=== PATIENT | female | born 1980 | race Caucasian/White ===

== ENCOUNTER 2017-10-24 20:45 | Observation (INO) | payer OTHER ==
[2017-10-24 21:35] LABS: ABSOLUTE BASOPHILS # (AUTO) 0.1 10^3/uL (0.0-0.2); ABSOLUTE LYMPHOCYTES (AUTO) 2.7 10^3/uL (0.5-4.7); ABSOLUTE MONOCYTES (AUTO) 0.4 10^3/uL (0.1-1.4); ABSOLUTE NEUT (AUTO) 6.4 10^3/uL (1.7-8.2); BASOPHILS % (AUTO) 0.7 % (0-2); EOSINOPHILS % (AUTO) 0.5 % (0-6); HEMATOCRIT 41.5 % (36.0-47.0); HEMOGLOBIN 14.4 g/dL (12.0-15.5); LYMPHOCYTES % (AUTO) 28.2 % (13-45); MEAN CORPUSCULAR HGB CONC 34.6 g/dL (32.0-36.0); MEAN CORPUSCULAR VOLUME 96 fl (80-97); MONOCYTES % (AUTO) 4.3 % (3-13); PLATELET COUNT 387 10^3/uL (150-450); RED BLOOD COUNT 4.35 10^6/uL (3.72-5.28); RED CELL DISTRIBUTION WIDTH 13.3 % (11.5-14.0); SEGMENTED NEUTROPHILS % (AUTO) 66.3 % (42-78); TOTAL CELLS COUNTED % (AUTO) 100 %; WHITE BLOOD COUNT 9.6 10^3/uL (4.0-10.5)
[2017-10-24 21:43] LABS: ALANINE AMINOTRANSFERASE 52 U/L (9-52); ALBUMIN 5.2 g/dL (3.5-5.0); ALKALINE PHOSPHATASE 75 U/L (38-126); ASPARTATE AMINO TRANSFERASE 46 U/L (14-36); BILIRUBIN,DIRECT 0.4 mg/dL (0.0-0.4); BILIRUBIN,TOTAL 0.8 mg/dL (0.2-1.3); BLOOD UREA NITROGEN 15 mg/dL (7-20); CALCIUM 9.4 mg/dL (8.4-10.2); GLUCOSE 69 mg/dL (75-110); POTASSIUM 4.3 mmol/L (3.6-5.0); TOTAL PROTEIN 8.8 g/dL (6.3-8.2)
[2017-10-24 21:47] LABS: ACETAMINOPHEN < 10 ug/mL (10-30); CARBON DIOXIDE 14 mmol/L (22-30); CHLORIDE 108 mmol/L (98-107); SALICYLATE < 1.0 mg/dL (2.0-20.0); SODIUM 145.2 mmol/L (137-145)
[2017-10-24 21:48] LABS: ANION GAP 23 (5-19)
[2017-10-24 21:53] LABS: ALCOHOL 318 mg/dL (NONE DETECTED)
--- NOTE | 2017-10-24 22:07 | ER Document Report ---
ED General - General Mode of Arrival: Ambulatory Information source: Patient, Law Enforcement TRAVEL OUTSIDE OF THE [place] IN LAST 30 DAYS: No <VIJAY DONNELLY - Last Filed: 10/24/17 22:14> <VINAY PETERSEN - Last Filed: 10/25/17 00:52> <WAYNE LERNER - Last Filed: 10/25/17 10:05> <GEORGIE HERRERA - Last Filed: 10/25/17 12:33> - General Chief Complaint: Psych Problem Stated Complaint: IVC WITH PAPERS Time Seen by Provider: 10/24/17 21:22 Notes: Patient is a 37 year old female with asthma brought into the emergency department via [employer] on IVC papers. Patient states she is here because of her . According to IVC brought in by law enforcement, patient's states she has been sleeping all day and is not capable to take care of her kids. Patient denies this statement stating her was not home today, and when he did come home she was up with her son. Patient denies drinking alcohol tonight, suicidal ideation or homicidal ideation. Patient currently takes Genny, Advair and Albuterol. Patient states she normally does not have to take albuterol when taking Advair but states her brought one of her cats into her home so she feels her breathing has been tighter lately. (VIJAY DONNELLY) Patient comes in with IVC paperwork, EtOH level is 318 document, denies drinking at all today. Spouse called and provided history to the nurse. Patient has long history of alcohol abuse. Today is day 6 of an alcohol binge. Unable to care for her children. Passes out at home while she is watching the children. Multiple suicide attempts in the past. (VINAY PETERSEN) - Related Data Allergies/Adverse Reactions: No Known Allergies Allergy (Unverified 10/24/17 21:26) Past Medical History - General Information source: Patient - Social History Smoking Status: Never Smoker Chew tobacco use (# tins/day): No Frequency of alcohol use: Heavy Drug Abuse: None Occupation: Stay at home mom Patient has suicidal ideation: No Patient has homicidal ideation: No - Past Medical History Cardiac Medical History: Reports: Hx Hypertension Pulmonary Medical History: Reports: Hx Asthma Past Surgical History: Reports: Hx Section - x2 <VIJAY DONNELLY - Last Filed: 10/24/17 22:14> - Social History Family History: None <GEORGIE HERRERA - Last Filed: 10/25/17 12:33> Review of Systems - Review of Systems Constitutional: No symptoms reported EENT: No symptoms reported Cardiovascular: No symptoms reported Respiratory: No symptoms reported Gastrointestinal: No symptoms reported Genitourinary: No symptoms reported Female Genitourinary: No symptoms reported Musculoskeletal: No symptoms reported Skin: No symptoms reported Hematologic/Lymphatic: No symptoms reported Neurological/Psychological: No symptoms reported -: Yes All other systems reviewed and negative <ANDRZEJSHAWNEEVARGHESE - Last Filed: 10/24/17 22:14> Physical Exam <VIJAY DONNELLY - Last Filed: 10/24/17 22:14> <VINAY PETERSEN - Last Filed: 10/25/17 00:52> <WAYNE LERNER - Last Filed: 10/25/17 10:05> <GEORGIE HERRERA - Last Filed: 10/25/17 12:33> - Vital signs Vitals: Temp Pulse Resp BP Pulse Ox 98.4 F 128 H 20 150/107 H 100 10/24/17 21:22 10/24/17 21:22 10/24/17 21:22 10/24/17 21:22 10/24/17 21:22 - Notes Notes: GENERAL: Alert, interacts well. No acute distress. Strong alcohol odor. HEAD: Normocephalic, atraumatic. EYES: Pupils equal, round, and reactive to light. Extraocular movements intact. ENT: Oral mucosa moist, tongue midline. NECK: Full range of motion. Supple. Trachea midline. LUNGS: Wheezing with cough. No rales or rhonchi. No respiratory distress. HEART: Regular rate and rhythm. No murmurs, gallops, or rubs. EXTREMITIES: Moves all 4 extremities spontaneously. NEUROLOGICAL: Alert and oriented x3. Normal speech. PSYCH: Normal affect, normal mood. SKIN: Warm, dry, normal turgor. No rashes or lesions noted. (VIJAY DONNELLY) Course - Laboratory Result Diagrams: 10/24/17 21:05 10/24/17 21:05 <VIJAY DONNELLY - Last Filed: 10/24/17 22:14> - Laboratory Result Diagrams: 10/24/17 21:05 10/24/17 21:05 - EKG Interpretation by Al EKG shows normal: Sinus rhythm, Terry, QRS Complexes, ST-T Waves. abnormal: Intervals - Borderline prolonged QT interval Rate: Normal - 98 Rhythm: NSR - Transfer of Care Care transferred to following provider: Dr. Kilgore <VINAY PETERSEN - Last Filed: 10/25/17 00:52> - Laboratory Result Diagrams: 10/24/17 21:05 10/24/17 21:05 <WAYNE LERNER - Last Filed: 10/25/17 10:05> - Laboratory Result Diagrams: 10/24/17 21:05 10/25/17 11:10 <GEORGIE HERRERA - Last Filed: 10/25/17 12:33> - Re-evaluation Re-evalutation: 10/25/17 00:52 Patient's agitated behavior calmed down after the Haldol and Benadryl. (VINAY PETERSEN) - Vital Signs Vital signs: Temp Pulse Resp BP Pulse Ox 98.9 F 102 H 16 147/98 H 100 10/25/17 10:45 10/25/17 10:45 10/25/17 10:45 10/25/17 10:45 10/25/17 10:45 - Laboratory Laboratory results interpreted by wy: 10/24/17 10/24/17 10/25/17 21:05 22:33 11:10 Sodium 145.2 H Chloride 108 H Carbon Dioxide 14 L 13 L Anion Gap 23 H 25 H Glucose 69 L 59 L Total Bilirubin 1.9 H Direct Bilirubin 0.5 H AST 46 H 53 H Total Protein 8.8 H 8.7 H Albumin 5.2 H 5.2 H Urine Protein 30 H Urine Ketones TRACE H Urine Blood MODERATE H Ur Leukocyte Esterase SMALL H Salicylates < 1.0 L Acetaminophen < 10 L Serum Alcohol 318 H* - Transfer of Care Notes: 10/25/17 00:53 Patient is pending evaluation by psychiatry in the morning. She is on IVC paperwork. She may need additional doses of Haldol and/or Benadryl for agitation. (VINAY PETERSEN) Discharge <VIJAY DONNELLY - Last Filed: 10/24/17 22:14> <VINAY PETERSEN - Last Filed: 10/25/17 00:52> <WAYNE LERNER - Last Filed: 10/25/17 10:05> - Discharge Admitting Provider: Siomara Fontanez Unit Admitted: IMCU <GEORGIE HERRERA - Last Filed: 10/25/17 12:33> - Discharge Clinical Impression: Chronic alcohol abuse, Alcoholic ketoacidosis Acute alcohol intoxication Qualifiers: Complication of substance-induced condition: uncomplicated Qualified Code(s): F10.929 - Alcohol use, unspecified with intoxication, unspecified Urinary tract infection Qualifiers: Urinary tract infection type: site unspecified Hematuria presence: without hematuria Qualified Code(s): N39.0 - Urinary tract infection, site not specified Condition: Fair Disposition: ADMITTED INPATIENT Additional Instructions: ACUTE ALCOHOL INTOXICATION and ALCOHOL ABUSE: Your evaluation revealed very high levels of alcohol. You can from drinking a large amount of alcohol rapidly! Further, there's the risk of falls , traffic accidents, and fights. A high portion (about 50 percent) of the serious injuries seen in hospital emergency rooms are caused by alcohol. Alcohol overdosage is usually due to an underlying emotional or psychiatric problem. You may benefit from counselling. If "binge" drinking is an ongoing problem for you, or if you drink ANY AMOUNT of alcohol EVERY day, you most likely have a tendency to alcoholism. You should avoid alcohol totally. We can refer you for treatment. Persons with alcohol problems are often also prone to other addictions -- you should discuss any use of medications or drugs with the doctor. You should be watched at home for the next several hours by someone who has not been drinking. Get extra fluids for the next 24 hours. Call the doctor if there is repeated vomiting, increasing headache, decreasing level of alertness, or any other worsening. CHRONIC ALCOHOLISM and ALCOHOL ABUSE: Your evaluation reveals evidence of chronic alcoholism, an addiction to alcohol. The tendency to alcoholism may be inherited. Chronic use of alcohol weakens muscles, causes fatty deposits in the liver , damages the stomach, makes you more prone to infections, and can cause defects in unborn children. In the long run, brain atrophy and cirrhosis of the liver result. You are also at greater risk for certain types of cancer, such as cancer of the mouth, throat, stomach, and liver. Counselling services are available to help you. In-hospital treatment programs often help. Support groups such as Alcoholics Anonymous can be very useful in beating this addiction. Your physician can make a referral for you. As alcoholics often are prone to other addictions, you should discuss your use of any other medications with the doctor. ALCOHOL WITHDRAWAL: Your symptoms are caused by alcohol withdrawal. After a period of frequent drinking, the brain and body are changed by the alcohol. When you quit or reduce your drinking, the nervous system becomes unstable. Withdrawal symptoms can start a few hours after your last drink, but sometimes don't begin until a couple of days later. Symptoms can include shakiness, sweating, insomnia, nausea , vomiting, fearfulness, hallucinations, and seizures. In addition to the acute effects of alcohol withdrawal, we often have to deal with the medical effects of alcoholism. These problems often include dehydration, stomach irritation, intestinal bleeding, low blood sugar, liver disease, and pancreas inflammation. Treatment for alcohol withdrawal includes mild sedatives, vitamins, and fluids. You need to be with someone who can help if symptoms become severe. Many patients can withdraw at home. Admission to the hospital or a detox facility may be necessary if withdrawal symptoms are severe and uncontrollable. Abstaining from alcohol is the only effective long-term treatment. If you start drinking again, you will not be able to control yourself after the first drink. Treatment programs are available. In addition, many alcoholics benefit from Alcoholics Anonymous or other support groups available through your counselor or christian materials tech. AL-ANON and ALA-TEEN are support groups for friends and family members of an alcoholic. Go to the emergency room if you develop persistent vomiting, severe abdominal pain, fever, shortness of breath, hallucinations, uncontrollable tremors, or seizures. FOLLOW-UP CARE: Please [place] for your continued services. You are encouraged to follow up with substance abuse treatment; you have been provided a detox list of area providers. If you experience worsening or a significant change in your symptoms , notify the physician immediately or return to the Emergency Department at any time for re-evaluation. Referrals: THOM LAMB DO [Primary Care Provider] - Follow up as needed Mitra Attestation: 10/24/17 22:56 I personally performed the services described in the documentation, reviewed and edited the documentation which was dictated to the scribe in my presence, and it accurately records my words and actions. (VINAY PETERSEN) Scribe Documentation - Scribe Written by Mitra:: Mitra Mccabe, 10/24/2017 22:09 acting as scribe for :: Jami <VIJAY DONNELLY - Last Filed: 10/24/17 22:14>
[2017-10-24 22:49] LABS: APPEARANCE,URINE CLEAR; BILIRUBIN,URINE NEGATIVE (NEGATIVE); COLOR,URINE YELLOW; GLUCOSE, URINE NEGATIVE (NEGATIVE); KETONES,URINE TRACE mg/dL (NEGATIVE); LEUKOCYTE ESTERASE,URINE SMALL (NEGATIVE); NITRITE,URINE NEGATIVE (NEGATIVE); PROTEIN,URINE 30 mg/dL (NEGATIVE); URINE SPECIFIC GRAVITY 1.005; UROBILINOGEN,URINE NEGATIVE mg/dL (<2.0)
[2017-10-24] MEDS ORDERED: HALOPERIDOL 5 MG TABLET PO ONE (22:53)
[2017-10-24] MEDS ORDERED: BENZTROPINE MESYLATE 1 MG TABLET PO ONE (22:54)
[2017-10-24] MEDS ORDERED: DIPHENHYDRAMINE HCL 25 MG CAPSULE PO ONE (22:54)
[2017-10-24] MEDS ORDERED: ALBUTEROL SULFATE HFA (90 MCG/PUFF) 8 GM MDI (1 MDI/ER DISP) IH ONE (22:54)
[2017-10-24 23:03] LABS: URINE AMPHETAMINES SCREEN NEGATIVE; URINE BARBITURATES SCREEN NEGATIVE; URINE BENZODIAZEPINES SCREEN NEGATIVE; URINE COCAINE SCREEN NEGATIVE; URINE MARIJUANA (THC) SCREEN NEGATIVE; URINE METHADONE SCREEN NEGATIVE; URINE PHENCYCLIDINE SCREEN NEGATIVE
--- NOTE | 2017-10-24 23:10 | EKG REPORT ---
SEVERITY:- BORDERLINE ECG - SINUS RHYTHM BORDERLINE PROLONGED QT INTERVAL : Confirmed by: Jamey Lal 24-Oct-2017 23:09:03
[2017-10-24] MEDS ORDERED: CEPHALEXIN 500 MG CAPSULE PO ONE (23:26)
--- NOTE | 2017-10-25 10:47 | ER Document Report ---
Doctor's Note Notes: 10/25/17 10:41 Talked with patient about why she is here in the ED. She reports that her brought her here because he thinks that she drinks too much. Pt admits that she drinks a "significant amount" of alcohol on the weekends and denies drinking alcohol during the weekdays. She reports that [place] and states that she is doing well under his counseling. Pt denies ever having tremors, seizures or hallucinations as withdrawals but admits that she has had sweats past. Pt is not okay with someone talking to her counselor before she can talk to him and wants to speak with her deputy county attorney. Pt denies every trying to herself or her children, 8 y.o twins and a 3 y.o, and she believes that her children are safe at home. Pt does not understand why she is being kept here and thinks that she is safe to go home. PE: LUNGS: Clear to auscultation bilaterally, no wheezes, rales, or rhonchi. No respiratory distress. HEART: Regular rate and rhythm. No murmurs, gallops, or rubs. (JERI ROMAN) 10/25/17 12:34 Labs reviewed, last needs laboratory studies are concerning for possible alcoholic ketoacidosis however she has been eating and drinking fluids all night long without difficulty so they were rechecked, this morning's labs show continuing low CO2 of 13 and increasing anion gap of 25, patient does have elevated total and direct bilirubin despite no abdominal pain and no vomiting, no tenderness on examination. Patient was cleared from a mental health standpoint, IVC is rescinded, discussed with internal medicine Dr. Stevens for admission for alcoholic ketoacidosis. Thiamine, D5 half-normal saline and multivitamins were started. Patient understands why she is being admitted. Also patient's urinary tract infection has been treated with Rocephin. (GEORGIE HERRERA)
[2017-10-25] MEDS: CEPHALEXIN 500 MG CAPSULE PO SCH ×2 (11:02→17:15)
[2017-10-25 11:48] LABS: POTASSIUM 4.6 mmol/L (3.6-5.0)
[2017-10-25 11:51] LABS: ALBUMIN 5.2 g/dL (3.5-5.0); ALKALINE PHOSPHATASE 77 U/L (38-126); ASPARTATE AMINO TRANSFERASE 53 U/L (14-36); BILIRUBIN,DIRECT 0.5 mg/dL (0.0-0.4); BILIRUBIN,TOTAL 1.9 mg/dL (0.2-1.3); BLOOD UREA NITROGEN 12 mg/dL (7-20); CALCIUM 9.4 mg/dL (8.4-10.2); CARBON DIOXIDE 13 mmol/L (22-30); GLUCOSE 59 mg/dL (75-110); TOTAL PROTEIN 8.7 g/dL (6.3-8.2)
[2017-10-25 11:52] LABS: ALANINE AMINOTRANSFERASE 52 U/L (9-52)
[2017-10-25 11:56] LABS: CHLORIDE 102 mmol/L (98-107); SODIUM 139.5 mmol/L (137-145)
[2017-10-25 11:57] LABS: ANION GAP 25 (5-19)
--- NOTE | 2017-10-25 12:09 | PSYCHOLOGICAL NOTE ---
Psych Note - Psych Note Psych Note: Reason for Consult: IVC Consent permissions: Paul, , Patient is a 37 year old female with asthma brought into the emergency department via [employer] on IVC papers. Patient states she is here because of her . According to IVC brought in by law enforcement, patient's states she has been sleeping all day and is not capable to take care of her kids. Patient denies this statement stating her was not home today, and when he did come home she was up with her son. Patient denies drinking alcohol tonight, suicidal ideation or homicidal ideation. Patient disclosed she came to [facility] ED because her called the police "because I was asleep." She reports her thought she was intoxicated however she denies drinking that evening stating "I drink 2 nights ago but not last night." Clinician notes patient's blood alcohol level was 318. Clinician discussed with the patient concern over the patient's denial; with her self- report to have not been drinking for the last 2 days with a blood alcohol level still at 318 last night at 9pm. Clinician disclosed the improbability of the patient blood alcohol level at 318 after not drinking for 2 days. Patient denies having any substance abuse treatment denies suicidal and homicidal ideation. She reports that she has 3 children that she cares for together with her . She disclosed that she does not have any diagnoses however [place] counseling and he also assists with substance abuse counseling. Patient denies family readiness program or child protective services are involved with the family. She denies any history of self-harm. Patient's spoke with clinician who disclosed that the patient has been having a pattern of abusing alcohol for last 6-7 years. He reports that the first time he knew was an issue was when he was returning home from a long trip out of state in which he found out she had just passed out on the couch and not taking care of the children. He continued to report that it has happened recently where the patient passes out and the children are blowing whistles in her ear and she does not respond. He is concerned that she is primary caregiver of the children and she is unable to provide that care because of her intoxication. Clinician contacted DSS, CPS, with concerns of neglect as patient is primary caregiver of children while intoxicated. Patient is alert and orientated to person, place, time and circumstance. Mood is euthymic however is demonstrating some slight irritability about having to stay for any length of time in the emergency department. Patient is not demonstrating any behavioral outbursts and is completely compliant with requests. Patient denies suicidal and homicidal ideation. Patient discloses coming to the ED because her was upset she fell asleep. Patient was highly intoxicated upon arrival; However, patient denies drinking alcohol. Behaviors congruent with intact reality based presentation i.e. organized and linear thought processes. Conversational speech was within normal rate, tone and prosody. Eye contact was well-maintained. Intellectual abilities appear to be within the average range. Attention and concentration are fair. Insight , judgment, impulse control are fair due to substance abuse. No medication recommendations 291.9 (F10.99) unspecified alcohol related disorder Impression/Plan: Patient is recommended for rescind of IVC and is cleared from psychiatric services. Patient has alcohol abuse history per and arrived intoxicated. Patient denies substance abuse and declines substance abuse treatment. Patient stated she had not drank for 2 days; however, her blood alcohol level upon arrival was 318. Patient is not sober and continues to denies suicidal ideation. Patient does not meet IVC criteria per [place] GS 122C. Patient's is in agreement with discharge and both patient and understand a CPS report had been made with concerns on the patient being the primary caregiver of their three children while intoxicated. Patient is highly encouraged to follow-up with substance abuse treatment. Dr. Cho was consulted and the care and management this patient; attending physician is agreement with recommendations and disposition.
[2017-10-25] MEDS ORDERED: THIAMINE HCL 100 MG, FOLIC ACID 1 MG in NORMAL SALINE 250 ML IV ONE (12:27)
[2017-10-25] MEDS ORDERED: DEXTROSE 5%-1/2 NORMAL SALINE 500 ML IV ONE (12:27)
[2017-10-25] MEDS ORDERED: ONDANSETRON 4 MG TAB.RAPDIS PO PRN (13:32)
[2017-10-25] MEDS ORDERED: ACETAMINOPHEN 325 MG TABLET PO PRN (13:32)
[2017-10-25 14:00] LABS: VENOUS BLOOD BASE EXCESS -8.7 mmol/L; VENOUS BLOOD HCO3 16.3 mmol/L (20-32); VENOUS BLOOD PCO2 32.6 mmHg (35-63); VENOUS BLOOD PH 7.32 (7.30-7.42)
[2017-10-25] MEDS: RINGERS SOLUTION,LACTATED 1,000 ML IV PRN (15:45)
[2017-10-25] MEDS ORDERED: LORAZEPAM INJ 2 MG/1 ML VIAL IV PRN (17:14)
--- NOTE | 2017-10-25 17:44 | PDOC H&P ---
History of Present Illness Admission Date/PCP: 10/25/17 12:59 THOM LAMB DO Patient complains of: ETOH. DOMESTIC DISPUTE. History of Present Illness: KRISTOPHER THEODORE is a 37 year old female who initially presented to the emergency department on the evening of 10/24 following an argument with her . She was brought into the emergency department via [employer] on IVC papers. Patient states she is here because of a domestic dispute with her . According to IVC brought in by law enforcement, patient's states she has been sleeping all day and is not capable to take care of her kids because she is routinely intoxicated and passes out at home while she is supposed to be caring for her children. Patient denies this statement. The patient admits to "only drinking on the weekends" and not consuming alcohol during the week, of note, the patient presented with a blood alcohol level of 318 on a Sunday night. PMH includes asthma Upon arrival to the ED, the patient was evaluated by the PSYCH liason, who rescinded the IVC. The patient denied SI or HI and is not considered to be a safety risk to herself or others. Her presenting vital signs were BP 150/107 HR 128 RR 20 T 98.4 SPO2 100% on room air. Her VS derrangements are likely due to the fact that the patient was very upset when she initially presented to the ED. Due to her agitation, she ended up receiving Haldol, Benadryl, and Cogentin. Upon reevaluation, her BP 111/68 HR 103. Her EKG showed NSR, no evidence of acute infarction or ischemia. Her lab work is concerning for alcoholic ketoacidosis (Anion Gap >20, CO2<14). In the ED, the patient received a banana bag containing thiamine and folate. Upon evaluation, roughly 14 hours after her arrival to the ED, the patient is awake, alert, oriented 3. She is calm and cooperative with staff. She answers all questions appropriately. She is able to ambulate without difficulty. She has no complaints at the time of my assessment. Plan to admit for management of her alcoholic ketoacidosis. Past Medical History Pulmonary Medical History: Reports: Asthma Past Surgical History Past Surgical History: Reports: Section - x2 Social History Smoking Status: Never Smoker Frequency of Alcohol Use: Occasional Hx Recreational Drug Use: No Drugs: None Hx Prescription Drug Abuse: No - Advance Directive Resuscitation Status: Full Code Family History Family History: Hypertension Parental Family History Reviewed: Yes Children Family History Reviewed: Yes Sibling(s) Family History Reviewed.: Yes Medication/Allergy Home Medications: Albuterol Sulfate [Proair HFA] 2 puff IH DAILYP PRN 10/25/17 Fexofenadine HCl [Genny] 180 mg PO DAILY 10/25/17 Fluticasone/Salmeterol [Advair 250-50 Diskus 28 dose] 1 inh IH BID 10/25/17 Allergies/Adverse Reactions: No Known Allergies Allergy (Unverified 10/24/17 21:26) Review of Systems All systems: reviewed and no additional remarkable complaints except as stated Physical Exam Vital Signs: Temp Pulse Resp BP Pulse Ox 98.3 F 112 H 18 163/98 H 100 10/25/17 15:16 10/25/17 15:16 10/25/17 15:16 10/25/17 15:16 10/25/17 15:16 General appearance: PRESENT: no acute distress Eye exam: PRESENT: conjunctiva pink, PERRLA Mouth exam: PRESENT: moist Neck exam: PRESENT: full ROM Respiratory exam: PRESENT: clear to auscultation dusty, symmetrical, unlabored Cardiovascular exam: PRESENT: +S1, +S2 Pulses: PRESENT: normal radial pulses, normal dorsalis pedis pul Vascular exam: PRESENT: normal capillary refill GI/Abdominal exam: PRESENT: normal bowel sounds, soft. ABSENT: tenderness Rectal exam: PRESENT: deferred Extremities exam: PRESENT: full ROM Musculoskeletal exam: PRESENT: ambulatory, full ROM Neurological exam: PRESENT: alert, awake, oriented to person, oriented to place , oriented to time, oriented to situation Psychiatric exam: PRESENT: appropriate affect Skin exam: PRESENT: dry, intact, warm, other - BRUISES IN MULTIPLE STAGES OF HEALING ON ARMS AND LEGS. PATIENT REPORTS MULTIPLE FALLS AT HOME. Results Laboratory Results: 10/25/17 13:49 VBG pH 7.32 VBG pCO2 32.6 L VBG HCO3 16.3 L VBG Base Excess -8.7 Status: Imported from PACS Assessment & Plan - Diagnosis (1) Alcoholic ketoacidosis Is this a current diagnosis for this admission?: Yes Plan: Secondary to ETOH use and poor PO intake Initially treated in the ED with banana bag, which included thiamine and folate Admit to IMCU Monitor for symptoms of ETOH withdrawal Continue LR maintenance IVF Continue daily thiamine Trend daily chemistries. If lab work improved, consider discharge tomorrow (2) Acute alcohol intoxication Qualifiers: Complication of substance-induced condition: uncomplicated Qualified Code(s ): F10.929 - Alcohol use, unspecified with intoxication, unspecified Is this a current diagnosis for this admission?: Yes Plan: Initial blood alcohol level 318 Patient treated with banana bag in the emergency department Continue maintenance IVF Daily folate, thaimine, MVI PRN IV ativan for symptoms of alcohol withdrawal (3) Urinary tract infection Qualifiers: Urinary tract infection type: site unspecified Hematuria presence: without hematuria Qualified Code(s): N39.0 - Urinary tract infection, site not specified Is this a current diagnosis for this admission?: Yes Plan: Urinalysis reveals UTI, urine culture pending Initiate Keflex PO - Time Time Spent: 30 to 50 Minutes Medications reviewed and adjusted accordingly: Yes Anticipated discharge: Home Within: within 48 hours - Inpatient Certification Based on my medical assessment, after consideration of the patient's comorbidities, presenting symptoms, or acuity I expect that the services needed warrant INPATIENT care.: Yes I certify that my determination is in accordance with my understanding of Medicare's requirements for reasonable and necessary INPATIENT services [42 CFR 412.3e].: Yes Medical Necessity: Risk of Complication if Not Cared For in Hospital
[2017-10-25] MEDS ORDERED: THIAMINE HCL 100 MG TABLET PO SCH (22:00)
[2017-10-25] MEDS ORDERED: MULTIVITAMIN TABLET PO SCH (22:00)
[2017-10-26] MEDS: RINGERS SOLUTION,LACTATED 1,000 ML IV PRN (02:41)
[2017-10-26 06:22] LABS: HEMATOCRIT 35.5 % (36.0-47.0); MEAN CORPUSCULAR HGB CONC 34.8 g/dL (32.0-36.0); MEAN CORPUSCULAR VOLUME 95 fl (80-97); PLATELET COUNT 247 10^3/uL (150-450); RED BLOOD COUNT 3.74 10^6/uL (3.72-5.28); WHITE BLOOD COUNT 6.4 10^3/uL (4.0-10.5)
[2017-10-26 06:40] LABS: ALANINE AMINOTRANSFERASE 42 U/L (9-52); ALBUMIN 4.2 g/dL (3.5-5.0); ALKALINE PHOSPHATASE 60 U/L (38-126); ANION GAP 13 (5-19); ASPARTATE AMINO TRANSFERASE 46 U/L (14-36); BILIRUBIN,DIRECT 0.4 mg/dL (0.0-0.4); BILIRUBIN,TOTAL 1.5 mg/dL (0.2-1.3); BLOOD UREA NITROGEN 8 mg/dL (7-20); CALCIUM 8.8 mg/dL (8.4-10.2); CARBON DIOXIDE 22 mmol/L (22-30); CHLORIDE 105 mmol/L (98-107); CHOLESTEROL 199.46 mg/dL (0-200); GLUCOSE 79 mg/dL (75-110); PHOSPHORUS 2.2 mg/dL (2.5-4.5); POTASSIUM 4.1 mmol/L (3.6-5.0); SODIUM 140.3 mmol/L (137-145); TOTAL PROTEIN 7.1 g/dL (6.3-8.2); TRIGLYCERIDES 483 mg/dL (<150)
[2017-10-26 06:42] LABS: HEMOGLOBIN 12.3 g/dL (12.0-15.5)
[2017-10-26 06:51] LABS: DIRECT LDL 81 mg/dL (<100)
[2017-10-26] MEDS: CEPHALEXIN 500 MG CAPSULE PO SCH (09:25)
[2017-10-26 13:50] VITALS: BP 148/98
== END 2017-10-26 14:45 | disposition home health service (06) ==
LOC: ER 20:45 → EH 10-25 12:59 → INTOOBSV 10-25 12:59 → 3S 10-25 15:12
PROVIDERS: ADMIT Emergency Medicine; ATTEND Emergency Medicine
DX: E87.2 Acidosis (principal); F10.129 Alcohol abuse with intoxication, unspecified; Y90.8 Blood alcohol level of 240 mg/100 ml or more; N39.0 Urinary tract infection, site not specified; J45.909 Unspecified asthma, uncomplicated; R45.1 Restlessness and agitation; Z79.899 Other long term (current) drug therapy; Z91.5 Personal history of self-harm
CPT/HCPCS: 93005; 99285; 36415 ×3; 87086; 80307 ×4; 83735; 84100; 84443; 84703; 85025; 85027; 87088; 80053 ×3; 81001; 87186; 82803; 80061; 93010; G0378 ×3; J3490; J2060; J3411; J7070; J7050; J7120 ×2